=== PATIENT | male | born 1940 | race Caucasian/White ===

== ENCOUNTER 2017-02-23 10:17 | Emergency (ER) | payer MEDICARE, BC ==
[~2017-02-23] VITALS: Ht 172.7 cm; Wt 74.0 kg
[~2017-02-23 10:17] MED LIST changes: -AMLO5TAB2 PO; -HYDR25TA5 PO; -LEVO.125 PO; -PERC5TAB12 PO; -RAMI5CAP PO; -TRAM50TA PO
[2017-02-23 10:19] VITALS: BP 120/70; PULSE 76; RESP 16; TEMP 98; O2SAT 94
[2017-02-23] MEDS ORDERED: HYDR25TA5 PO (10:57)
[2017-02-23] MEDS ORDERED: PERC5TAB12 PO ×2 (10:57→11:13)
[2017-02-23] MEDS ORDERED: TRAM50TA PO (10:57)
[2017-02-23] MEDS ORDERED: RAMI5CAP PO (10:57)
[2017-02-23] MEDS ORDERED: LEVO.125 PO (10:57)
[2017-02-23] MEDS ORDERED: AMLO5TAB2 PO (10:57)
--- NOTE | 2017-02-23 11:13 | PD ---
HPI Chief Complaint: Back/ Neck Pain or Injury Time Seen by Provider: 10:43 Travel History International Travel<30 days: No Contact w/Intl Traveler<30days: No Traveled to known affect area: No History of Present Illness HPI This 77 year-old woman who presents to the emergency department complaining of back pain. He had kyphoplasty for what sounds like a T12 compression fracture several days ago. He has a prescription for Percocet 5 mg. He states he still having pain despite this. Surgery was done in [place]. He states he had pain so bad this morning and to take 2 of his tablets. Pain is worse when he first gets up in the morning. History Past Medical History Narrative Medical Chronic back pain Social History Alcohol Use: Yes Tobacco Use: No (quit 25 years ago) Allergies-Medications (Allergen,Severity, Reaction): Coded Allergies: No Known Allergies (Unverified , 02/23/17) Reported Meds & Prescriptions Reported Meds & Active Scripts Active Reported Hydrochlorothiazide 25 Mg Tab 25 Mg PO DAILY Amlodipine (Amlodipine Besylate) 5 Mg Tab 5 Mg PO DAILY Ramipril 5 Mg Cap 5 Mg PO DAILY Tramadol (Tramadol HCl) 50 Mg Tab 50 Mg PO Q4H PRN Synthroid (Levothyroxine Sodium) 125 Mcg Tab 125 Mcg PO DAILY Percocet (Oxycodone-Acetaminophen) 5-325 mg Tab 1-2 Tab PO Q4H PRN Review of Systems Except as stated in HPI: all other systems reviewed are Neg Physical Exam Narrative GENERAL: Well-appearing 77-year-old man, no acute distress. Looks relatively comfortable. SKIN: Warm and dry. CARDIOVASCULAR: Warm and well perfused. RESPIRATORY: Normal rate and effort. MUSCULOSKELETAL: Normal appearance of the back. There is a small needle valentino in his lower thoracic spine. No erythema redness or drainage. NEUROLOGICAL: Awake and alert. No gross deficits. Data Data Last Documented VS Vital Signs Date Time Temp Pulse Resp B/P Pulse Ox O2 Delivery O2 Flow Rate FiO2 02/23/17 10:19 98.0 76 16 120/70 94 MDM Medical Decision Making Medical Screen Exam Complete: Yes Emergency Medical Condition: Yes Differential Diagnosis Infection, missed fracture, postop pain Narrative Course Medical decision making This 69-year-old presents with pain from a known compression fracture. Sounds like he was under the impression that his symptoms are dramatically improved following the kyphoplasty. He only had a couple days ago. I think this is expected pain following a compression fracture. He is encouraged to use his Percocet as prescribed. We'll also fit him for a TLSO brace for support and comfort. Recommend outpatient follow-up. They're visiting from out of town but her here for couple months. He'll be given information for Dr. Nagel, and orthopedic follow-up. It sounds like they are however they are going to plan on flying home. Diagnosis Primary Impression: Compression fracture of body of thoracic vertebra Referrals: Ashkan Nagel MD call for appointment [facility] call for appointment Patient Instructions: General Instructions Additional Instructions: Wear TLSO brace while up and on your feet. Follow-up with an orthopedic doctor here or at home. Use Percocet, one to 2 tabs every 4-6 hours as needed for pain. Take Mallika-Colace, or combination of senna and Colace, daily wall you are taking the Percocet. Return to the emergency department for any new or worsening symptoms. Med/Other Pt SpecificInfo: Prescription(s) given Scripts Oxycodone-Acetaminophen (Percocet)5-325 mg Tab1-2 Tab PO Q6H PRN (PAIN) #25 TAB Ref 0 Prov:Sunil Ceron MD 02/23/17 Disposition: 01 DISCHARGE HOME Condition: Stable Sunil Ceron MD Feb 23, 2017 11:13
== END 2017-02-23 11:26 | disposition home or self-care (01) ==
LOC: PHEFT 10:17
DX: M48.54XD Collapsed vertebra, not elsewhere classified, thoracic region, subsequent encounter for fracture with routine healing (principal); G89.29 Other chronic pain; Z98.890 Other specified postprocedural states
CPT/HCPCS: 99283; L1050

== ENCOUNTER → 2017-02-23 | Outpatient (CLI) | payer MEDICARE, BC ==
[~2017-02-23] MED LIST: AMLO5TAB2 PO; AMLO5TAB22 PO; HYDR-2768 PO; HYDR25TA5 PO; LEVO.125 PO; ORPH100T PO; PERC5TAB12 PO; RAMI10CA35 PO; RAMI5CAP PO; SYNT175T PO; TRAM50TA PO; ULTR50TA PO
== END ==
LOC: HORT 13:35
PROVIDERS: ATTEND Preventive Medicine Addiction Medicine
DX: Z46.89 Encounter for fitting and adjustment of other specified devices (principal)
CPT/HCPCS: L1050

== ENCOUNTER 2017-08-16 08:37 | Emergency (ER) | payer MEDICARE, BC ==
[~2017-08-16] VITALS: Ht 172.7 cm; Wt 67.0 kg
[~2017-08-16 08:37] MED LIST changes: +AMLO5TAB2 PO; -AMLO5TAB22 PO; -HYDR-2768 PO; +HYDR25TA5 PO; +LEVO.125 PO; -ORPH100T PO; +PERC5TAB12 PO; -RAMI10CA35 PO; +RAMI5CAP PO; -SYNT175T PO; +TRAM50TA PO; -ULTR50TA PO
[2017-08-16 08:38] VITALS: BP 114/60; PULSE 75; RESP 18; TEMP 98; O2SAT 98
[2017-08-16 08:57] VITALS: O2SAT 100
--- NOTE | 2017-08-16 08:58 | PD ---
HPI Chief Complaint: Dizziness Time Seen by Provider: 08:54 Travel History International Travel<30 days: No Contact w/Intl Traveler<30days: No Traveled to known affect area: No History of Present Illness HPI 77-year-old male with history of hypertension, chronic back pains, presents to the ER today for 2 days history of dizziness, states that he has been feeling more dizzy in the last day or so, states that it is mostly lightheadedness. He feels like he has a little unsteady. He denies any headaches, fevers, chest pains, shortness of breath, or any other symptoms. He has been able to walk and drive himself to the ER today. He denies any new medications. He has intermittent problems with diarrhea and constipation, states his stools have been dark brown recently. Modifying Factors: None Associated Signs & Symptoms: Dizziness Risk Factors: None PFSH Past Medical History Hx Anticoagulant Therapy: No Arthritis: Yes Cardiovascular Problems: Yes (HTN) Diabetes: No Genitourinary: Yes (chronic kidney disease) Hypertension: Yes Thyroid Disease: Yes Past Surgical History Abdominal Surgery: Yes (inguinal hernia repair) Cholecystectomy: Yes Other Surgery: Yes (cyst off neck) Social History Alcohol Use: Yes Tobacco Use: No (quit 25 years ago) Substance Use: No Allergies-Medications (Allergen,Severity, Reaction): Coded Allergies: No Known Allergies (Unverified , 02/23/17) Reported Meds & Prescriptions Reported Meds & Active Scripts Active Reported Tylenol (Acetaminophen) 325 Mg Tab 650 Mg PO Q4H PRN Frannie Allergy (Fexofenadine HCl) 60 Mg Tab 30 Mg PO BID Calcitriol 0.25 Mcg Cap 0.25 Mcg PO EVERY OTHER DAY Zolpidem (Zolpidem Tartrate) 5 Mg Tab 5 Mg PO HS PRN Hydrochlorothiazide 25 Mg Tab 25 Mg PO DAILY Amlodipine (Amlodipine Besylate) 5 Mg Tab 5 Mg PO DAILY Ramipril 5 Mg Cap 5 Mg PO DAILY Tramadol (Tramadol HCl) 50 Mg Tab 50 Mg PO Q4H PRN Synthroid (Levothyroxine Sodium) 125 Mcg Tab 125 Mcg PO DAILY Review of Systems Except as stated in HPI: all other systems reviewed are Neg Physical Exam Narrative GENERAL: Well-developed elderly white male patient currently in mild distress. Awake and oriented 3. SKIN: Focused skin assessment warm/dry. HEAD: Atraumatic. Normocephalic. EYES: Pupils equal and round. No scleral icterus. No injection or drainage. ENT: No nasal bleeding or discharge. Mucous membranes pink and moist. NECK: Trachea midline. No JVD. CARDIOVASCULAR: Regular rate and rhythm. No murmur appreciated. RESPIRATORY: No accessory muscle use. Clear to auscultation. Breath sounds equal bilaterally. GASTROINTESTINAL: Abdomen soft, non-tender, nondistended. Hepatic and splenic margins not palpable. RECTAL EXAM: No masses or tenderness, stool is brown. Hemoccult negative. MUSCULOSKELETAL: No obvious deformities. No clubbing. No cyanosis. No edema. NEUROLOGICAL: Awake and alert. No obvious cranial nerve deficits. Motor grossly within normal limits. Normal speech. PSYCHIATRIC: Appropriate mood and affect; insight and judgment normal. Data Data Last Documented VS Vital Signs Date Time Temp Pulse Resp B/P (MAP) Pulse Ox O2 Delivery O2 Flow Rate FiO2 08/16/17 10:16 63 17 119/63 (81) 100 Room Air 08/16/17 08:38 98.0 Orders Orders Electrocardiogram (08/16/17 08:54) Complete Blood Count With Diff (08/16/17 08:54) Comprehensive Metabolic Panel (08/16/17 08:54) Magnesium (Mg) (08/16/17 08:54) Ckmb (Isoenzyme) Profile (08/16/17 08:54) Troponin I (08/16/17 08:54) Act Partial Throm Time (Ptt) (08/16/17 08:54) Prothrombin Time / Inr (Pt) (08/16/17 08:54) Urinalysis - C+S If Indicated (08/16/17 08:54) Chest, Single Ap (08/16/17 08:54) Ct Brain W/O Iv Contrast(Rout) (08/16/17 08:54) Ecg Monitoring (08/16/17 08:54) Iv Access Insert/Monitor (08/16/17 08:54) Oximetry (08/16/17 08:54) Sodium Chloride 0.9% Flush (Ns Flush) (08/16/17 09:00) Orthostatic Vital Signs (08/16/17 08:54) Sodium Chlorid 0.9% 500 Ml Inj (Ns 500 M (08/16/17 10:00) CKMB (08/16/17 09:25) CKMB% (08/16/17 09:25) Labs Laboratory Tests Test 08/16/17 09:25 08/16/17 11:00 White Blood Count 7.6 TH/MM3 Red Blood Count 3.93 MIL/MM3 Hemoglobin 11.8 GM/DL Hematocrit 34.0 % Mean Corpuscular Volume 86.4 FL Mean Corpuscular Hemoglobin 30.1 PG Mean Corpuscular Hemoglobin Concent 34.8 % Red Cell Distribution Width 12.6 % Platelet Count 207 TH/MM3 Mean Platelet Volume 7.6 FL Neutrophils (%) (Auto) 79.8 % Lymphocytes (%) (Auto) 6.9 % Monocytes (%) (Auto) 9.1 % Eosinophils (%) (Auto) 2.0 % Basophils (%) (Auto) 2.2 % Neutrophils # (Auto) 5.9 TH/MM3 Lymphocytes # (Auto) 0.5 TH/MM3 Monocytes # (Auto) 0.7 TH/MM3 Eosinophils # (Auto) 0.2 TH/MM3 Basophils # (Auto) 0.2 TH/MM3 CBC Comment DIFF FINAL Differential Comment Prothrombin Time 10.8 SEC Prothromb Time International Ratio 1.0 RATIO Activated Partial Thromboplast Time 25.5 SEC Blood Urea Nitrogen 46 MG/DL Creatinine 2.50 MG/DL Random Glucose 98 MG/DL Total Protein 7.1 GM/DL Albumin 3.8 GM/DL Calcium Level 8.5 MG/DL Magnesium Level 2.0 MG/DL Alkaline Phosphatase 50 U/L Aspartate Amino Transf (AST/SGOT) 20 U/L Alanine Aminotransferase (ALT/SGPT) 25 U/L Total Bilirubin 0.9 MG/DL Sodium Level 138 MEQ/L Potassium Level 4.6 MEQ/L Chloride Level 106 MEQ/L Carbon Dioxide Level 22.4 MEQ/L Anion Gap 10 MEQ/L Estimat Glomerular Filtration Rate 25 ML/MIN Total Creatine Kinase 116 U/L Creatine Kinase MB 2.8 NG/ML Troponin I LESS THAN 0.02 NG/ML Urine Collection Type CLEAN CATCH Urine Color YELLOW Urine Turbidity CLEAR Urine pH 5.5 Urine Specific Boyd 1.012 Urine Protein NEG mg/dL Urine Glucose (UA) NEG mg/dL Urine Ketones NEG mg/dL Urine Occult Blood NEG Urine Nitrite NEG Urine Bilirubin NEG Urine Leukocyte Esterase NEG Urine RBC 0-3 /hpf Urine Squamous Epithelial Cells 0-5 /hpf Microscopic Urinalysis Comment CULT NOT INDICATED Urine Collection Time 11:00 [facility] Medical Decision Making Medical Screen Exam Complete: Yes Emergency Medical Condition: Yes Medical Record Reviewed: Yes Interpretation(s) EKG shows NSR, no ST elevation or depression, and no arrhythmias. No significant T-wave inversions. Laboratory Tests Test 08/16/17 09:25 08/16/17 11:00 Red Blood Count 3.93 MIL/MM3 (4.50-5.90) Hemoglobin 11.8 GM/DL (13.0-17.0) Hematocrit 34.0 % (39.0-51.0) Neutrophils (%) (Auto) 79.8 % (16.0-70.0) Lymphocytes (%) (Auto) 6.9 % (9.0-44.0) Monocytes (%) (Auto) 9.1 % (0.0-8.0) Basophils (%) (Auto) 2.2 % (0.0-2.0) Lymphocytes # (Auto) 0.5 TH/MM3 (1.0-4.8) Blood Urea Nitrogen 46 MG/DL (7-18) Creatinine 2.50 MG/DL (0.60-1.30) Estimat Glomerular Filtration Rate 25 ML/MIN (>89) Troponin I LESS THAN 0.02 NG/ML Last [address] 08/16/17853 Signed Impressions: Service Date/Time: August 09:07 - CONCLUSION: Normal examination. Jem Alaniz Jr., MD Chest X-Ray 08/16/17853 Signed Impressions: Service Date/Time: August 09:43 - CONCLUSION: No acute disease. Robi Escoto MD Differential Diagnosis Dizziness: Dysrhythmias versus orthostasis versus dehydration versus medication side effect versus metabolic issues versus vertigo versus CVA Narrative Course CAT scan did not show any signs of acute intracranial processes. Chest x-ray was fairly unremarkable. EKG did not show significant dysrhythmias or ST changes. Patient is fairly asymptomatic in the ER except for some dizziness. Lab work did not show significant electrolyte abnormalities or significant signs of dehydration. His BUN/creatinine creatinine is elevated but this appears to be on a chronic basis a do not see any changes. He may have some underlying chronic renal insufficiency. Patient has no focal neurological deficits on evaluation. He is on quite a few medications with side effects of dizziness including pain medications and insomnia medications and allergies medications. At one to give some of this may be causing his dizziness. At this point, my plan would be to release him with follow-up back to primary care physician regarding this issue. Return for any worsening in symptoms as necessary. The plan has discussed with him and he states understanding. [facility] Point of Care Internal Pos. & Neg. Controls: Passed Fecal Specimen Occult Blood: Negative Diagnosis Primary Impression: Dizziness Disposition: 01 DISCHARGE HOME Condition: Stable Lucho Forrest MD Aug 16, 2017 08:58
[2017-08-16] MEDS ORDERED: SODIUM CHLORIDE 0.9% FLUSH 10 ML FLUSH IVF PRN (09:00)
[2017-08-16 09:31] LABS: AUTOMATED NEUTROPHIL # 5.9 TH/MM3 (1.8-7.7); BASOPHIL # 0.2 TH/MM3 (0-0.2); BASOPHIL % 2.2 % (0.0-2.0); EOSINOPHIL # 0.2 TH/MM3 (0-0.4); LYMPH % 6.9 % (9.0-44.0); LYMPHOCYTE # 0.5 TH/MM3 (1.0-4.8); MEAN CELL VOLUME 86.4 FL (80.0-100.0); MEAN CORPUSCULAR HEMOGLOBIN 30.1 PG (27.0-34.0); MEAN CORPUSCULAR HGB CONC 34.8 % (32.0-36.0); MONO % 9.1 % (0.0-8.0); NEUT % 79.8 % (16.0-70.0); PLATELET COUNT 207 TH/MM3 (150-450); RED BLOOD COUNT 3.93 MIL/MM3 (4.50-5.90); RED CELL DISTRIBUTION WIDTH 12.6 % (11.6-17.2); WHITE BLOOD COUNT 7.6 TH/MM3 (4.0-11.0)
[2017-08-16] MEDS ORDERED: ZOLP5TAB3 PO (09:33)
[2017-08-16] MEDS ORDERED: CALC0.25 PO (09:33)
[2017-08-16] MEDS ORDERED: TYLE325T PO (09:33)
[2017-08-16] MEDS ORDERED: ALLE60TA PO (09:33)
--- NOTE | 2017-08-16 09:34 | RADRPT ---
EXAM DATE/TIME: 08/16/2017 09:07 [facility] COMPARISON: No previous studies available for comparison. INDICATIONS : Dizziness x 2 weeks, worse last night. RADIATION DOSE: 61.33 CTDIvol (mGy) MEDICAL HISTORY : Hypertension. SURGICAL HISTORY : Cholecystectomy. Inguinal hernia repair.Kyphoplasty. ENCOUNTER: Initial ACUITY: 2 weeks PAIN SCALE: 0/10 LOCATION: cranial TECHNIQUE: Multiple contiguous axial images were obtained of the head. Using automated exposure control and adj ustment of the mA and/or kV according to patient size, radiation dose was kept as low as reasonably a chievable to obtain optimal diagnostic quality images. DICOM format image data is available electro nically for review and comparison. FINDINGS: CEREBRUM: The ventricles are normal for age. No evidence of midline shift, mass lesion, hemorrhage or acute in farction. No extra-axial fluid collections are seen. POSTERIOR FOSSA: The cerebellum and brainstem are intact. The 4th ventricle is midline. The cerebellopontine angle i s unremarkable. EXTRACRANIAL: The visualized portion of the orbits is intact. SKULL: The calvaria is intact. No evidence of skull fracture. CONCLUSION: Normal examination. Jem Alaniz Jr., MD on August 16, 2017 at 9:32 Board Certified Radiologist. This report was verified electronically.
[2017-08-16 09:35] VITALS: BP 124/63; PULSE 64; RESP 18; O2SAT 100
[2017-08-16 09:40] VITALS: BP_SYST 120; BP_SYST 123; BP_SYST 124; BP_DIAS 63; BP_DIAS 70
[2017-08-16] MEDS ORDERED: SODIUM CHLORID 0.9% 500 ML INJ 500 ML IV ONE (10:00)
[2017-08-16 10:04] LABS: APTT (PATIENT) 25.5 SEC (24.3-30.1); PROTHROMBIN TIME - PATIENT 10.8 SEC (9.8-11.6)
[2017-08-16 10:12] LABS: HEMO FLAGS DIFF FINAL
[2017-08-16 10:13] LABS: BICARBONATE 22.4 MEQ/L (21.0-32.0)
[2017-08-16 10:16] VITALS: BP 119/63; PULSE 63; RESP 17; O2SAT 100
[2017-08-16 10:16] LABS: ALT (GPT) 25 U/L (12-78)
[2017-08-16 10:17] LABS: GLOMERULAR FILTRATION RATE 25 ML/MIN (>89)
[2017-08-16 10:18] LABS: ANION GAP 10 MEQ/L (5-15); CHLORIDE 106 MEQ/L (98-107); POTASSIUM 4.6 MEQ/L (3.5-5.1); SODIUM (NA) 138 MEQ/L (136-145)
[2017-08-16 10:20] LABS: ALKALINE PHOSPHATASE 50 U/L (45-117); CREATINE KINASE 116 U/L (39-308)
--- NOTE | 2017-08-16 10:22 | RADRPT ---
EXAM DATE/TIME: 08/16/2017 09:43 [facility] COMPARISON: No previous studies available for comparison. INDICATIONS : Heart palpitations for 3 days. MEDICAL HISTORY : Hypertension. Renal insufficiency. Degenerative disc disease SURGICAL HISTORY : inguinal hernia repair ENCOUNTER: Initial ACUITY: 3 days PAIN SCORE: 1/10 LOCATION: Bilateral upper chest FINDINGS: A single view of the chest demonstrates the lungs to be symmetrically aerated without evidence of mas s, infiltrate or effusion. The cardiomediastinal contours are unremarkable. Osseous structures are intact. CONCLUSION: No acute disease. Robi Escoto MD on August 16, 2017 at 10:21 Board Certified Radiologist. This report was verified electronically.
[2017-08-16 10:30] LABS: BLOOD UREA NITROGEN 46 MG/DL (7-18)
[2017-08-16 10:31] LABS: AST (GOT) 20 U/L (15-37)
[2017-08-16 10:32] LABS: CKMB 2.8 NG/ML (0.5-3.6)
[2017-08-16 10:39] LABS: TOTAL BILIRUBIN ADULT 0.9 MG/DL (0.2-1.0)
[2017-08-16 11:07] LABS: BLOOD, URINE NEG (NEG); GLUCOSE,URINE NEG (NEG); KETONE, URINE NEG (NEG); NITRITE,URINE NEG (NEG); PH, URINE 5.5 (5.0-8.5)
[2017-08-16 11:20] VITALS: BP 123/73; PULSE 64; RESP 17; O2SAT 99
[2017-08-16 11:50] LABS: COMMENT (UR) CULT NOT INDICATED; CULTURE IF INDICATED CULT NOT INDICATED; METHOD OF COLLECTION CLEAN CATCH; RBC, URINE 0-3 /hpf (0-3); SQUAMOUS EPITHELIAL CELL URINE 0-5 /hpf (0-5); URINE COLOR YELLOW (YELLW/STRAW)
--- NOTE | 2017-08-16 13:16 | EKG ---
Date Performed: 08/16/2017 Time Performed: 09:01:52 PTAGE: 77 years EKG: Sinus rhythm WITH FIRST DEGREE AV BLOCK ABNORMAL ECG NO PREVIOUS TRACING DOCTOR: Rylan Galvin Interpretating Date/Time 08/16/2017 13:14:28
== END 2017-08-16 12:14 | disposition home or self-care (01) ==
LOC: PHED 08:37
DX: R42 Dizziness and giddiness (principal); R26.81 Unsteadiness on feet; R94.31 Abnormal electrocardiogram [ECG] [EKG]; I10 Essential (primary) hypertension; E07.9 Disorder of thyroid, unspecified; Z87.39 Personal history of other diseases of the musculoskeletal system and connective tissue; Z86.79 Personal history of other diseases of the circulatory system; Z87.448 Personal history of other diseases of urinary system
CPT/HCPCS: 70450; 71010; 80053; 81001; 82550; 82552; 83735; 84484; 85025; 85610; 85730; 93005; 96360; 99285; J7040

== ENCOUNTER 2017-09-09 08:28 | Emergency (ER) | payer MEDICARE, BC ==
[~2017-09-09] VITALS: Ht 168.9 cm; Wt 63.0 kg
[~2017-09-09 08:28] MED LIST changes: +ALLE60TA PO; +CALC0.25 PO; -PERC5TAB12 PO; +TYLE325T PO; +ZOLP5TAB3 PO
[2017-09-09 08:31] VITALS: BP 171/80; PULSE 67; RESP 14; TEMP 97.5; O2SAT 99
--- NOTE | 2017-09-09 08:51 | PD ---
HPI Chief Complaint: Syncope/Near-Syncope Time Seen by Provider: 08:50 Travel History International Travel<30 days: No Contact w/Intl Traveler<30days: No Traveled to known affect area: No History of Present Illness HPI 77-year-old male came to the emergency room with history of feeling lightheaded since 8 this morning when he woke up. He felt like he was going to pass out at one point. He did not pass out but asked his to bring him to the emergency room. Upon talking further patient says that he has been under a lot of stress lately. Him and his had a big fight last night which she called mostly bickering for nothing. [place] are moving up north in another one week to 10 days and things are getting packed and that has been extremely stressful. It is also putting a lot of stress into their relationship. Also patient had a spine fracture 6 months ago that required surgery and since then he has been having a lot of abdominal discomfort. This has been addressed on multiple occasions by different physicians that he has gone to. He has a GI appointment on Sunday coming up for this. However because of this lightheadedness today he came to the emergency room. His blood pressure was elevated which usually is not this high as per the patient. He is on antihypertensive. His doctors are up north. Patient denies of any pain anywhere. [facility] Past Medical History Narrative Medical List of his past medical, surgical, social and family history is reviewed from the nursing note. Hx Anticoagulant Therapy: No Arthritis: Yes Cardiovascular Problems: Yes (HTN) Diabetes: No Genitourinary: Yes (chronic kidney disease) Hypertension: Yes Thyroid Disease: Yes Past Surgical History Abdominal Surgery: Yes (inguinal hernia repair) Cholecystectomy: Yes Other Surgery: Yes (cyst off neck) Social History Alcohol Use: Yes Tobacco Use: No (quit 25 years ago) Substance Use: No Allergies-Medications (Allergen,Severity, Reaction): Coded Allergies: No Known Allergies (Unverified Adverse Reaction, Unknown, 09/09/17) Comments No known drug allergies. Reported Meds & Prescriptions Reported Meds & Active Scripts Active Reported Multiple Vitamin 1 Tab 1 Tab PO DAILY Glucosamine (Glucosamine Sulfate) 1,000 Mg Cap Unknown Dose PO DAILY Tylenol (Acetaminophen) 325 Mg Tab 650 Mg PO Q4H PRN Frannie Allergy (Fexofenadine HCl) 60 Mg Tab 30 Mg PO BID Calcitriol 0.25 Mcg Cap 0.25 Mcg PO EVERY OTHER DAY Zolpidem (Zolpidem Tartrate) 5 Mg Tab 5 Mg PO HS PRN Hydrochlorothiazide 25 Mg Tab 12.5 Mg PO DAILY Amlodipine (Amlodipine Besylate) 5 Mg Tab 5 Mg PO DAILY Ramipril 5 Mg Cap 5 Mg PO DAILY Tramadol (Tramadol HCl) 50 Mg Tab 50 Mg PO Q4H PRN Synthroid (Levothyroxine Sodium) 125 Mcg Tab 125 Mcg PO DAILY Narrative Medication List of his home medications reviewed from the nursing note. Review of Systems Except as stated in HPI: all other systems reviewed are Neg Neurologic: Positive: Weakness Physical Exam Narrative GENERAL: Awake, alert, anxious, elderly, mild distress SKIN: Focused skin assessment warm/dry. HEAD: Atraumatic. Normocephalic. EYES: Pupils equal and round. No scleral icterus. No injection or drainage. ENT: No nasal bleeding or discharge. Mucous membranes pink and moist. NECK: Trachea midline. No JVD. CARDIOVASCULAR: Regular rate and rhythm. No murmur appreciated. RESPIRATORY: No accessory muscle use. Clear to auscultation. Breath sounds equal bilaterally. GASTROINTESTINAL: Abdomen soft, non-tender, nondistended. Hepatic and splenic margins not palpable. MUSCULOSKELETAL: No obvious deformities. No clubbing. No cyanosis. No edema. NEUROLOGICAL: Awake and alert. No obvious cranial nerve deficits. Motor grossly within normal limits. Normal speech. PSYCHIATRIC: Appropriate mood and affect; insight and judgment normal. Data Data Last Documented VS Vital Signs Date Time Temp Pulse Resp B/P (MAP) Pulse Ox O2 Delivery O2 Flow Rate FiO2 09/09/17 12:13 09/09/17 11:17 61 16 99 Room Air 09/09/17 08:31 97.5 Orders Orders Electrocardiogram (09/09/17 09:04) Basic Metabolic Panel (Bmp) (09/09/17 09:04) Ckmb (Isoenzyme) Profile (09/09/17 09:04) Complete Blood Count With Diff (09/09/17 09:04) Magnesium (Mg) (09/09/17 09:04) Prothrombin Time / Inr (Pt) (09/09/17 09:04) Act Partial Throm Time (Ptt) (09/09/17 09:04) Troponin I (09/09/17 09:04) Chest, Single Ap (09/09/17 09:04) Ecg Monitoring (09/09/17 09:04) Bilateral Bp Monitoring (09/09/17 09:04) Iv Access Insert/Monitor (09/09/17 09:04) Oximetry (09/09/17 09:04) Oxygen Administration (09/09/17 09:04) Sodium Chloride 0.9% Flush (Ns Flush) (09/09/17 09:15) Ct Brain W/O Iv Contrast(Rout) (09/09/17 ) Thyroid Stimulating Hormone (09/09/17 09:04) Orthostatic Vital Signs (09/09/17 09:06) CKMB (09/09/17 09:10) CKMB% (09/09/17 09:10) Amlodipine (Norvasc) (09/09/17 11:00) Ed Discharge Order (09/09/17 11:03) Labs Laboratory Tests Test 09/09/17 09:10 White Blood Count 5.5 TH/MM3 Red Blood Count 3.92 MIL/MM3 Hemoglobin 11.8 GM/DL Hematocrit 34.5 % Mean Corpuscular Volume 87.8 FL Mean Corpuscular Hemoglobin 30.1 PG Mean Corpuscular Hemoglobin Concent 34.3 % Red Cell Distribution Width 13.1 % Platelet Count 192 TH/MM3 Mean Platelet Volume 7.9 FL Neutrophils (%) (Auto) 75.9 % Lymphocytes (%) (Auto) 13.3 % Monocytes (%) (Auto) 8.4 % Eosinophils (%) (Auto) 1.8 % Basophils (%) (Auto) 0.6 % Neutrophils # (Auto) 4.2 TH/MM3 Lymphocytes # (Auto) 0.7 TH/MM3 Monocytes # (Auto) 0.5 TH/MM3 Eosinophils # (Auto) 0.1 TH/MM3 Basophils # (Auto) 0.0 TH/MM3 CBC Comment DIFF FINAL Differential Comment Prothrombin Time 10.9 SEC Prothromb Time International Ratio 1.0 RATIO Activated Partial Thromboplast Time 24.2 SEC Blood Urea Nitrogen 29 MG/DL Creatinine 2.25 MG/DL Random Glucose 93 MG/DL Calcium Level 8.6 MG/DL Magnesium Level 2.0 MG/DL Sodium Level 137 MEQ/L Potassium Level 4.2 MEQ/L Chloride Level 109 MEQ/L Carbon Dioxide Level 20.4 MEQ/L Anion Gap 8 MEQ/L Estimat Glomerular Filtration Rate 28 ML/MIN Total Creatine Kinase 141 U/L Creatine Kinase MB 3.7 NG/ML Troponin I LESS THAN 0.02 NG/ML Thyroid Stimulating Hormone 3rd Gen 1.250 uIU/ML MDM Medical Decision Making Medical Screen Exam Complete: Yes Emergency Medical Condition: Yes Medical Record Reviewed: Yes Interpretation(s) Twelve-lead EKG was reviewed by me. Normal sinus rhythm, left axis deviation, bradycardia, first-degree AV block. Heart rate of 54 bpm. Differential Diagnosis Orthostatic hypotension, dehydration, ACS Narrative Course 11:12 AM blood test results are back. Patient has renal insufficiency which has been noticed in the past lab tests as well. BUN/creatinine is not much different from his past results. Chest x-ray and head CT is negative. Patient did not have orthostatic hypotension. I have given him 5 mg of by mouth amlodipine for his blood pressure. I spoke extensively with the patient and his regarding the stressors and they'll life and for patient to reduce stress. His was really concerned because how much this has been affecting him. I recommended him to call his primary care as soon as possible and talk to him about this. I'm comfortable discharging the patient home otherwise. Procedures EKG Prior to Arrival: No Diagnosis Primary Impression: Near syncope Additional Impressions: Renal insufficiency Stress Anxiety Hypertension Qualified Codes: I10 - Essential (primary) hypertension Referrals: Primary Care Physician 2 days Additional Instructions: Please return to the ER if the condition worsens or any other new concerns. Please talk to a automatic typewriter inspector about your medications including the Ramipril and hydrochlorothiazide for your blood pressure since it will affect her kidneys and you have chronic kidney disease. Also your blood pressure has been going up and hence I just need to be made into your blood pressure regimen. My recommendation would be to go up on the amlodipine to 10 mg instead of the ramipril. Please discuss this with the automatic typewriter inspector. Return to the ER if the condition worsens or any other new concerns. Disposition: 01 DISCHARGE HOME Condition: Stable Jocelyne Walter MD Sep 09, 2017 08:51
[2017-09-09 08:54] VITALS: BP_SYST 162; BP_SYST 184; BP_DIAS 96; BP_DIAS 98; PULSE 68; RESP 16; O2SAT 99
[2017-09-09] MEDS ORDERED: SODIUM CHLORIDE 0.9% FLUSH 10 ML FLUSH IVF PRN (09:15)
[2017-09-09] MEDS ORDERED: GLUC100013 PO (09:17)
[2017-09-09] MEDS ORDERED: MULTTAB67 PO (09:17)
--- NOTE | 2017-09-09 09:21 | RADRPT ---
EXAM DATE/TIME: 09/09/2017 09:07 [facility] COMPARISON: CT BRAIN W/O CONTRAST, August 16, 2017, 9:07. INDICATIONS : Syncope. RADIATION DOSE: 56.35 CTDIvol (mGy) MEDICAL HISTORY : Hypertension. SURGICAL HISTORY : Cholecystectomy. ENCOUNTER: Initial ACUITY: 1 day PAIN SCALE: 0/10 LOCATION: cranial TECHNIQUE: Multiple contiguous axial images were obtained of the head. Using automated exposure control and adj ustment of the mA and/or kV according to patient size, radiation dose was kept as low as reasonably a chievable to obtain optimal diagnostic quality images. DICOM format image data is available electro nically for review and comparison. FINDINGS: CEREBRUM: The ventricles are normal for age. No evidence of midline shift, mass lesion, hemorrhage or acute in farction. No extra-axial fluid collections are seen. POSTERIOR FOSSA: The cerebellum and brainstem are intact. The 4th ventricle is midline. The cerebellopontine angle i s unremarkable. EXTRACRANIAL: The visualized portion of the orbits is intact. SKULL: The calvaria is intact. No evidence of skull fracture. CONCLUSION: Normal examination. Sunil Sampson MD on September 09, 2017 at 9:19 Board Certified Radiologist. This report was verified electronically.
[2017-09-09 09:37] LABS: AUTOMATED NEUTROPHIL # 4.2 TH/MM3 (1.8-7.7); BASOPHIL % 0.6 % (0.0-2.0); EOSINOPHIL # 0.1 TH/MM3 (0-0.4); EOSINOPHIL % 1.8 % (0.0-4.0); HEMATOCRIT 34.5 % (39.0-51.0); HEMO FLAGS DIFF FINAL; LYMPH % 13.3 % (9.0-44.0); LYMPHOCYTE # 0.7 TH/MM3 (1.0-4.8); MEAN CELL VOLUME 87.8 FL (80.0-100.0); MEAN CORPUSCULAR HEMOGLOBIN 30.1 PG (27.0-34.0); MEAN CORPUSCULAR HGB CONC 34.3 % (32.0-36.0); MONO % 8.4 % (0.0-8.0); NEUT % 75.9 % (16.0-70.0); PLATELET COUNT 192 TH/MM3 (150-450); RED BLOOD COUNT 3.92 MIL/MM3 (4.50-5.90); RED CELL DISTRIBUTION WIDTH 13.1 % (11.6-17.2); WHITE BLOOD COUNT 5.5 TH/MM3 (4.0-11.0)
[2017-09-09 09:52] LABS: APTT (PATIENT) 24.2 SEC (24.3-30.1); PROTHROMBIN TIME - PATIENT 10.9 SEC (9.8-11.6)
--- NOTE | 2017-09-09 10:05 | RADRPT ---
EXAM DATE/TIME: 09/09/2017 09:26 [place] COMPARISON: CHEST SINGLE AP, August 16, 2017, 9:43. INDICATIONS : Chest pain MEDICAL HISTORY : Hypertension. Renal insufficiency. Degenerative disc disease SURGICAL HISTORY : Inguinal hernia repair. ENCOUNTER: Initial ACUITY: 1 day PAIN SCORE: 3/10 LOCATION: Bilateral chest FINDINGS: A single view of the chest demonstrates the lungs to be symmetrically aerated without evidence of mas s, infiltrate or effusion. The cardiomediastinal contours are unremarkable. Osseous structures are intact. Cholecystectomy clips. Previous vertebral plasty. CONCLUSION: Normal examination. Sunil Sampson MD on September 09, 2017 at 10:03 Board Certified Radiologist. This report was verified electronically.
[2017-09-09 10:08] VITALS: BP_SYST 159; BP_SYST 161; BP_SYST 165; BP_DIAS 78; BP_DIAS 81; BP_DIAS 89; RESP 16
[2017-09-09 10:09] LABS: ANION GAP 8 MEQ/L (5-15); BICARBONATE 20.4 MEQ/L (21.0-32.0); BLOOD UREA NITROGEN 29 MG/DL (7-18); CHLORIDE 109 MEQ/L (98-107); GLOMERULAR FILTRATION RATE 28 ML/MIN (>89); POTASSIUM 4.2 MEQ/L (3.5-5.1); SODIUM (NA) 137 MEQ/L (136-145)
[2017-09-09 10:16] VITALS: BP_SYST 152; BP_SYST 164; BP_DIAS 73; BP_DIAS 84; PULSE 57; RESP 16; O2SAT 99
[2017-09-09 10:17] LABS: CREATINE KINASE 141 U/L (39-308)
[2017-09-09 10:30] LABS: CKMB 3.7 NG/ML (0.5-3.6)
[2017-09-09] MEDS ORDERED: amLODIPine BESYLATE 5 MG TAB PO ONE (11:00)
[2017-09-09 11:17] VITALS: BP 164/80; PULSE 61; RESP 16; O2SAT 99
--- NOTE | 2017-09-09 13:02 | EKG ---
Date Performed: 09/09/2017 Time Performed: 10:15:08 PTAGE: 77 years EKG: SINUS BRADYCARDIA WITH FIRST DEGREE AV BLOCK ABNORMAL ECG PREVIOUS TRACING : 08/16/2017 09.01 No significant change from previous tracing noted. DOCTOR: Rylan Galvin Interpretating Date/Time 09/09/2017 13:00:32
== END 2017-09-09 12:20 | disposition home or self-care (01) ==
LOC: NEPE 08:28
DX: R55 Syncope and collapse (principal); R42 Dizziness and giddiness; R00.1 Bradycardia, unspecified; R94.31 Abnormal electrocardiogram [ECG] [EKG]; I44.0 Atrioventricular block, first degree; N28.9 Disorder of kidney and ureter, unspecified; F41.9 Anxiety disorder, unspecified; I10 Essential (primary) hypertension; M19.90 Unspecified osteoarthritis, unspecified site
CPT/HCPCS: 70450; 71010; 80048; 82550; 82552; 83735; 84443; 84484; 85025; 85610; 85730; 93005